=== PATIENT | female | born 1970 | race Caucasian/White ===

== ENCOUNTER 2019-11-22 09:25 | Emergency (ER) | payer OTHER ==
[~2019-11-22] VITALS: Ht 152.4 cm; Wt 90.7 kg
--- NOTE | 2019-11-22 09:30 | NUR ---
[id number], from work, c/o right middle finger pain s/p smashed from trash can, 03/29 ps. Patient a/ox4, breathing even and unlabored, no sob noted, needs attended. Kept comfortable.
[2019-11-22] MEDS ORDERED: IBUPROFEN 600 MG TABLET PO ONE ×2 (09:38→10:00)
--- NOTE | 2019-11-22 10:37 | NUR ---
Finger splint applied to right middle finger. Patient discharged to home in stable condition. Written and verbal after care instructions given. Patient verbalizes understanding of instruction. Her work will arrange for transportation.
[2019-11-22 10:39] VITALS: BP 130/70
== END 2019-11-22 10:39 | disposition home or self-care (01) ==
LOC: ER 09:35
DX: S62.632A Displaced fracture of distal phalanx of right middle finger, initial encounter for closed fracture (principal); E11.9 Type 2 diabetes mellitus without complications; W22.8XXA Striking against or struck by other objects, initial encounter; Y93.89 Activity, other specified; Y92.89 Other specified places as the place of occurrence of the external cause; Y99.8 Other external cause status
CPT/HCPCS: 73140-TC